=== PATIENT | male | born 1945 | race Caucasian/White ===

== ENCOUNTER 2022-09-16 17:01 | Emergency (ER) | payer OTHER ==
[~2022-09-16] VITALS: Ht 190.5 cm; Wt 110.0 kg
[2022-09-16 17:09] VITALS: BP 132/60
== END 2022-09-16 18:04 | disposition left against medical advice (07) ==
LOC: ER 17:01
DX: R55 Syncope and collapse (principal); N40.0 Benign prostatic hyperplasia without lower urinary tract symptoms; E78.00 Pure hypercholesterolemia, unspecified; I11.0 Hypertensive heart disease with heart failure; I50.9 Heart failure, unspecified; M10.9 Gout, unspecified; Z86.73 Personal history of transient ischemic attack (TIA), and cerebral infarction without residual deficits; Z91.030 Bee allergy status
CPT/HCPCS: 99283